=== PATIENT | male | born 1985 | race Caucasian/White ===

== ENCOUNTER 2016-10-01 13:35 | Emergency (ER) | payer OTHER ==
[2016-10-01 14:04] VITALS: BP 123/71
--- NOTE | 2016-10-01 14:42 | UC ---
Back Pain HPI - HPI Summary HPI Summary: complaint of lower back pain that started yesterday had some slight pain that started 2 days ago but was mild then after carrying a large box of water upstairs today the pain increased constant aching non radiating pain movement increases pain lying on his side relieves pain used ice on and off this morning using diclofenac cream without relief took some ibuprofen without relief - last dose at 7:30 this morning denies fever, incontinence, no unintentional weight loss in the last year - History of Current Complaint Chief Complaint: UCBackPain Stated Complaint: BACK SPASMS Time Seen by Provider: 10/01/16 14:35 Hx Obtained From: Patient - Allergies/Home Medications Allergies/Adverse Reactions: Allergies Allergy/AdvReac Type Severity Reaction Status Date / Time Dust Mite Extract Allergy Intermediate SINUS Verified 10/01/16 13:58 CONGESTION, ITCHING Doxycycline Allergy Itching Verified 10/01/16 13:58 Penicillins Allergy Unknown Verified 10/01/16 13:58 Reaction Details TREE POLLEN Allergy Unknown Unknown Uncoded 10/01/16 13:58 Reaction Details seasonal allergy Allergy Congestion Uncoded 10/01/16 13:58 Home Medications: Home Medications Minocycline (NF) 100 mg PO DAILY 10/01/16 [History Confirmed 10/01/16] Omeprazole CAP* [Prilosec CAP* 20 MG] 40 mg PO DAILY 10/01/16 [History Confirmed 10/01/16] buPROPion SR TAB* [Wellbutrin SR TAB*] 300 mg PO DAILY 10/01/16 [History Confirmed 10/01/16] PMH/Surg Hx/FS Hx/Imm Hx Previously Healthy: No - chronic back pain, undiffernetiated connective tissue disease, fibromyalgia - Surgical History Surgical History: Yes Surgery Procedure, Year, and Place: wisdom teeth. SINUS - TISSUE REMOVED & DEVIATED EPTUM - 02/04, upper endoscopy 2014. tear duct plugs placed bilat - Family History Known Family History: Positive: None, Hypertension Negative: Cardiac Disease, Diabetes - Social History Occupation: Employed Full-time Lives: With Family Alcohol Use: None Substance Use Type: None Smoking Status (MU): Never Smoked Tobacco Have You Smoked in the Last Year: No - Immunization History Hx Tetanus, Diphtheria Vaccination: Yes Vaccination Up to Date: Yes Review of Systems Constitutional: Negative Skin: Negative Eyes: Negative ENT: Negative Respiratory: Negative Cardiovascular: Negative Gastrointestinal: Negative Genitourinary: Negative Motor: Negative Neurovascular: Negative Musculoskeletal: Other: - lower back pain Neurological: Negative Psychological: Negative All Other Systems Reviewed And Are Negative: Yes Physical Exam Triage Information Reviewed: Yes Appearance: Well-Nourished, Pain Distress, Thin Vital Signs: Initial Vital Signs Temp 97.9 F 10/01/16 14:00 Pulse 75 10/01/16 14:00 Resp 16 10/01/16 14:00 BP 123/71 10/01/16 14:00 Pulse Ox 97 10/01/16 14:00 Vital Signs Reviewed: Yes Eyes: Positive: Conjunctiva Clear ENT: Positive: Pharynx normal, TMs normal Neck: Positive: No Lymphadenopathy Respiratory: Positive: Lungs clear, Normal breath sounds, No respiratory distress, No accessory muscle use Cardiovascular: Positive: RRR, No Murmur, Pulses Normal, Brisk Capillary Refill Abdomen Description: Positive: Nontender, Soft Bowel Sounds: Positive: Present Musculoskeletal: Positive: Other: - Spine have no noted deformities or signs of inflammation. Curvature of thoracic, and lumbar spine are within normal limits. Bony features of shoulders and hips are of equal height bilaterally. Spinous processes of T1-L5 palpable, midline, and non-tender; No step-offs. lumbar paraspinal tenderness. Flexion, extension, and rotation of the remaining spinal column is limited. Neurological: Positive: Alert, Other: Psychological Exam: Normal Skin Exam: Normal Re-Evaluation - Re-Evaluation First Eval Re-Evaluation Time: 15:21 Change: Improved Comment: less back pain at this time Back Pain Course/Dx - Course Course Of Treatment: exam completed. no red flags to warrant imaging at this time. will start muscle relaxer and NSAIDS and refer to PT for further evaluation and treatment - followup with PCP - Differential Dx/Diagnosis Differential Diagnosis/HQI/PQRI: Herniated Disc, Strain, Sprain Provider Diagnoses: lower back pain Discharge - Discharge Plan Condition: Stable Disposition: HOME Prescriptions: Ibuprofen TAB* [Motrin TAB* 800 MG] 800 mg PO Q8H #30 tab Metaxalone TAB* [Skelaxin TAB*] 800 mg PO TID #30 tab Patient Education Materials: Low Back Strain (ED) Referrals: Jordon Castro MD [Primary Care Provider] - Additional Instructions: Start skelaxin as directed. Do not drink or drive while on skelaxin. Please call physical therapy for further evaluation and treatment. Take ibuprofen for fever or pain. Increase fluids and rest. Please review your discharge instructions. If your symptoms do not improve please call your primary care provider or return to urgent care.
[2016-10-01] MEDS ORDERED: Ketorolac INJ* 60 MG/2 ML VIAL IM ONE (14:49)
== END 2016-10-01 15:34 | disposition home or self-care (01) ==
LOC: UCCORT 13:35
DX: M54.5 Low back pain (principal); Z88.1 Allergy status to other antibiotic agents; Z88.0 Allergy status to penicillin
CPT/HCPCS: 96372; 99212; G0463; J1885

== ENCOUNTER 2017-11-07 19:00 | Emergency (ER) | payer OTHER ==
[2017-11-07 20:17] VITALS: BP 110/71
--- NOTE | 2017-11-07 20:32 | UC ---
Respiratory Complaint HPI - HPI Summary HPI Summary: 5 days of worsening cough and chest congestion--patient is immune-suppressed. has not used his inhaler - History of Current Complaint Chief Complaint: UCRespiratory Stated Complaint: COUGH Time Seen by Provider: 11/07/17 20:22 Hx Obtained From: Patient Onset/Duration: Gradual Onset, Lasting Days - 5, Still Present Timing: Constant Pain Intensity: 7 Pain Scale Used: 0-10 Numeric Character: Cough: Productive Aggravating Factors: Nothing Alleviating Factors: Nothing Associated Signs And Symptoms: Positive: Chills, URI - Allergies/Home Medications Allergies/Adverse Reactions: Allergies Allergy/AdvReac Type Severity Reaction Status Date / Time doxycycline Allergy Itching Verified 11/07/17 20:11 Penicillins Allergy Unknown Verified 11/07/17 20:11 Reaction Details TREE POLLEN Allergy Unknown Unknown Uncoded 10/01/16 13:58 Reaction Details DUST MITE EXTRACT Allergy See Comment Uncoded 11/07/17 20:11 seasonal allergy Allergy Congestion Uncoded 10/01/16 13:58 Home Medications: Home Medications Abatacept* [Orencia*] 1 dose .ROUTE SEE INSTRUCTIONS 11/07/17 [History Confirmed 11/07/17] Cyclobenzaprine TAB* [Flexeril 10 MG TAB*] 10 mg PO BID PRN 11/07/17 [History Confirmed 11/07/17] Metoprolol Succinate XL TAB* [Toprol XL TAB*] 25 mg PO DAILY 11/07/17 [History Confirmed 11/07/17] Mirtazapine TAB* [Remeron TAB*] 15 mg PO BEDTIME 11/07/17 [History Confirmed ] Topiramate TAB(*) [Topamax 25 MG tab] 50 mg PO BEDTIME 11/07/17 [History Confirmed 11/07/17] PMH/Surg Hx/FS Hx/Imm Hx Previously Healthy: No - connective tissue disorder Cardiovascular History: Hypertension GI/ History: Gastroesophageal Reflux - Surgical History Surgical History: Yes Surgery Procedure, Year, and Place: wisdom teeth. SINUS - TISSUE REMOVED & DEVIATED EPTUM - 02/04, upper endoscopy 2014. tear duct plugs placed bilat - Family History Known Family History: Positive: None, Hypertension Negative: Cardiac Disease, Diabetes - Social History Occupation: Disabled Lives: With Family Alcohol Use: None Substance Use Type: None Smoking Status (MU): Never Smoked Tobacco Have You Smoked in the Last Year: No - Immunization History Hx Tetanus, Diphtheria Vaccination: Yes Vaccination Up to Date: Yes Review of Systems Constitutional: Fatigue Skin: Negative Eyes: Negative ENT: Sore Throat Respiratory: Cough Cardiovascular: Negative Gastrointestinal: Negative Genitourinary: Negative Motor: Negative Neurovascular: Negative Musculoskeletal: Negative Neurological: Negative Psychological: Negative Is Patient Immunocompromised?: Yes All Other Systems Reviewed And Are Negative: Yes Physical Exam Triage Information Reviewed: Yes Appearance: Well-Nourished, Ill-Appearing - mild, Pain Distress Vital Signs: Initial Vital Signs Temp 98.5 F 11/07/17 20:03 Pulse 97 11/07/17 20:03 Resp 16 11/07/17 20:03 BP 110/71 11/07/17 20:03 Pulse Ox 100 11/07/17 20:03 Vital Signs Reviewed: Yes Eye Exam: Normal Eyes: Positive: Conjunctiva Clear ENT Exam: Normal ENT: Positive: Normal ENT inspection, Hearing grossly normal, Pharynx normal, Nasal congestion, Nasal drainage, TMs normal, Uvula midline. Negative: Tonsillar swelling, Trismus, Muffled voice, Hoarse voice, Dental tenderness, Sinus tenderness Dental Exam: Normal Neck exam: Normal Neck: Positive: Supple, Nontender, No Lymphadenopathy Respiratory Exam: Normal Respiratory: Positive: Chest non-tender, Lungs clear, Normal breath sounds, No respiratory distress, No accessory muscle use Cardiovascular Exam: Normal Cardiovascular: Positive: RRR, No Murmur, Pulses Normal, Brisk Capillary Refill Musculoskeletal Exam: Normal Musculoskeletal: Positive: Strength Intact, ROM Intact, No Edema Neurological Exam: Normal Neurological: Positive: Alert, Muscle Tone Normal Psychological Exam: Normal Skin Exam: Normal UC Diagnostic Evaluation - Laboratory O2 Sat by Pulse Oximetry: 100 Re-Evaluation - Re-Evaluation First Eval Change: Improved - feels better after neb---cough significantly improved Respiratory Course/Dx - Course Course Of Treatment: zithromax, refill albuterol increase fluids follow with pcp - Differential Dx/Diagnosis Provider Diagnoses: bronchitis, acute exacerbation of bronchospasm Discharge - Sign-Out/Discharge Documenting (check all that apply): Patient Departure All imaging exams completed and their final reports reviewed: No Studies - Discharge Plan Condition: Stable Disposition: HOME Prescriptions: Albuterol HFA INHALER* [Ventolin HFA Inhaler*] 2 puff INH Q6H PRN #1 mdi PRN Reason: cough/sob Azithromycin TAB* [Zithromax TAB (Z-KETAN) 250 mg #6 tabs] 250 mg PO DAILY #4 tab Patient Education Materials: Acute Bronchitis (ED), Bronchospasm (ED) Referrals: Jordon Castro MD [Primary Care Provider] - If Needed - Billing Disposition and Condition Condition: STABLE Disposition: Home
[2017-11-07] MEDS ORDERED: Albuterol/Ipratropium NEB.SOL* Albuterol 2.5 MG/Ipratropium 0.5 MG 3 ML INH ONE (20:33)
[2017-11-07] MEDS ORDERED: Azithromycin TAB* 250 MG PO ONE (20:34)
== END 2017-11-07 20:58 | disposition home or self-care (01) ==
LOC: UCCORT 19:00
CPT/HCPCS: 99212; A9270-GY; G0463

== ENCOUNTER 2018-05-14 21:20 | Emergency (ER) | payer OTHER ==
[2018-05-14 21:36] VITALS: BP 132/87
[2018-05-14] MEDS ORDERED: ceFUROXime TAB(*) 250 MG PO ONE (21:42)
--- NOTE | 2018-05-14 21:43 | UC ---
Respiratory Complaint HPI - HPI Summary HPI Summary: 32 yo male with sinus pressure and pain/severe nasal d/c and right upper dental pain no fever/chills no cough or SOB no myalgias has had sinus surgery - History of Current Complaint Chief Complaint: UCRespiratory Stated Complaint: SINUSES Time Seen by Provider: 05/14/18 21:26 Hx Obtained From: Patient Onset/Duration: Sudden Onset, Lasting Days Timing: Constant Severity Initially: Mild Severity Currently: Moderate Pain Intensity: 6 Pain Scale Used: 0-10 Numeric Character: Cough: Nonproductive Aggravating Factors: Nothing Alleviating Factors: Nothing Associated Signs And Symptoms: Positive: URI, Nasal Congestion, Sinus Discomfort - Allergies/Home Medications Allergies/Adverse Reactions: Allergies Allergy/AdvReac Type Severity Reaction Status Date / Time doxycycline Allergy Itching Verified 05/14/18 21:28 Penicillins Allergy Unknown Verified 05/14/18 21:28 Reaction Details TREE POLLEN Allergy Unknown Unknown Uncoded 05/14/18 21:28 Reaction Details DUST MITE EXTRACT Allergy See Comment Uncoded 05/14/18 21:28 seasonal allergy Allergy Congestion Uncoded 05/14/18 21:28 Home Medications: Home Medications Clindamycin 1% TOPICAL(NF) [Cleocin-T 1% TOPICAL(NF)] 1 % EX DAILY 05/14/18 [ History Confirmed 05/14/18] Diclofenac 1% GEL (NF) [Voltaren 1% GEL (NF)] 1 applic TOPICAL QID PRN 05/14/18 [History Confirmed 05/14/18] Fluticasone NASAL SPRAY 50MCG* [Flonase NASAL SPRAY 50MCG*] 2 spray BOTH NARES DAILY 05/14/18 [History Confirmed 05/14/18] levETIRAcetam [Keppra] 500 mg PO TID 05/14/18 [History Confirmed 05/14/18] PMH/Surg Hx/FS Hx/Imm Hx Previously Healthy: Yes - RA/fibro/mono/ Cardiovascular History: Hypertension - Surgical History Surgical History: Yes Surgery Procedure, Year, and Place: wisdom teeth. SINUS - TISSUE REMOVED & DEVIATED EPTUM - 02/04, upper endoscopy 2014. tear duct plugs placed bilat - Family History Known Family History: Positive: Hypertension Negative: Cardiac Disease, Diabetes - Social History Alcohol Use: None Substance Use Type: None Smoking Status (MU): Never Smoked Tobacco Have You Smoked in the Last Year: No - Immunization History Hx Tetanus, Diphtheria Vaccination: Yes Vaccination Up to Date: Yes Review of Systems All Other Systems Reviewed And Are Negative: Yes Constitutional: Positive: Negative Skin: Positive: Negative Eyes: Positive: Negative ENT: Positive: Nasal Discharge, Sinus Congestion, Sinus Pain/Tenderness Respiratory: Positive: Cough Cardiovascular: Positive: Negative Gastrointestinal: Positive: Negative Genitourinary: Positive: Negative Motor: Positive: Negative Neurovascular: Positive: Negative Musculoskeletal: Positive: Negative Neurological: Positive: Negative Psychological: Positive: Negative Physical Exam Triage Information Reviewed: Yes Appearance: Well-Appearing, No Pain Distress, Well-Nourished Vital Signs: Initial Vital Signs Temp 98.8 F 05/14/18 21:33 Pulse 98 05/14/18 21:33 Resp 16 05/14/18 21:33 BP 132/87 05/14/18 21:33 Pulse Ox 100 05/14/18 21:33 Vital Signs Reviewed: Yes Eyes: Positive: Conjunctiva Clear ENT: Positive: Hearing grossly normal, Nasal congestion, Nasal drainage, TMs normal, Sinus tenderness - R>L. Negative: Tonsillar swelling, Tonsillar exudate Neck: Positive: Supple, Nontender, No Lymphadenopathy Respiratory: Positive: Lungs clear, Normal breath sounds, No respiratory distress Cardiovascular: Positive: RRR, No Murmur Neurological: Positive: Alert Psychological Exam: Normal Skin Exam: Normal Respiratory Course/Dx - Differential Dx/Diagnosis Provider Diagnosis: Sinusitis Discharge - Sign-Out/Discharge Documenting (check all that apply): Patient Departure All imaging exams completed and their final reports reviewed: No Studies - Discharge Plan Condition: Stable Disposition: HOME Prescriptions: ceFUROXime TAB(*) [Ceftin TAB(*)] 250 mg PO BID #14 tab Patient Education Materials: Sinusitis (ED) Referrals: Jordon Castro MD [Primary Care Provider] - If Needed - Billing Disposition and Condition Condition: STABLE Disposition: Home
== END 2018-05-14 21:54 | disposition home or self-care (01) ==
LOC: UCCORT 21:20
DX: J32.9 Chronic sinusitis, unspecified (principal); I10 Essential (primary) hypertension; Z98.890 Other specified postprocedural states; Z88.1 Allergy status to other antibiotic agents; Z88.0 Allergy status to penicillin; Z91.09 Other allergy status, other than to drugs and biological substances
CPT/HCPCS: 99212; G0463

== ENCOUNTER 2019-02-18 21:03 | Emergency (ER) | payer OTHER ==
--- OUTSIDE RECORDS SUMMARY | 2019-02-18 21:12 | XMS REPORT | Summary of Care ---
:1985 Author Organization [facility] Address [address] [place] [address] Care Team Providers Name Role Phone Jordon Castro MD Primary Care Provider Reason for Visit Reason Comments Follow-up Medication (Routine) Status Reason Specialty Diagnoses / Referred By Contact Referred To Procedures Contact Authorized Rheumatology Diagnoses Rheumatoid arthritis without rheumatoid factor, unspecified site Rheumatology Procedures [place] ABATACEPT INJECTION Medicine Private Practice [facility] [address] [place] [phone] Encounter Details Date Type Department Care Team Description 02/03/2019 Office Visit [facility] Pebbles Guallpa MD [address] [place] [id number] High risk medication use (Primary Dx); Rheumatology Madhavi Harley, RN [address] [place] [phone] Seronegative rheumatoid arthritis [address] [place] [phone] Allergies Active Allergy Reactions Severity Noted Date Comments Doxycycline Hyclate Itching Low 07/18/2014 Penicillins Medium 07/18/2014 documented as of this encounter (statuses as of 02/03/2019) Medications Medication Sig Dispensed Refills Start Date End Date Status albuterol (VENTOLIN Inhale 2 puffs 0 Active HFA) 108 (90 BASE) into the lungs MCG/ACT inhaler every 4 (four) hours as needed for Wheezing. omeprazole (PRILOSEC) Take 40 mg by 0 Active 40 MG capsule mouth daily. diazepam (VALIUM) 5 MG Take 5 mg by 0 Active tablet mouth every 6 (six) hours as needed for Anxiety. diphenhydrAMINE Take 50 mg by 0 Active (BENADRYL) 25 MG tablet mouth nightly as needed for Itching. cetirizine (ZYRTEC) 10 Take 10 mg by 0 Active MG tablet mouth daily. ibuprofen Take 800 mg by 0 Active (ADVIL,MOTRIN) 800 MG mouth every 8 tablet (eight) hours as needed for Pain Azelastine-Fluticasone by Nasal route 0 Active (DYMISTA) 137-50 MCG/ACT SUSP cyclobenzaprine 5 mg Three times 0 03/05/2017 Active (FLEXERIL) 5 MG tablet daily as needed metoprolol (TOPROL-XL) Take 25 mg by 0 Active 25 MG 24 hr tablet mouth daily topiramate (TOPAMAX) 25 Take 4 tablet by 0 08/27/2017 Active MG tablet mouth at bedtime AT BEDTIME mirtazapine (REMERON) 0 09/07/2017 Active 15 MG tablet levETIRAcetam (KEPPRA) Take 1,000 mg by 0 Active 250 MG tablet mouth Two Times Daily fluticasone (FLONASE) 1 spray by Nasal 0 Active 50 MCG/ACT nasal spray route daily AZELASTINE & by Nasal route 0 Active FLUTICASONE NA Diclofenac Sodium Apply 2 g 200 g 3 04/05/2018 Active (VOLTAREN) 1 % topically Four GELIndications: M06.9 times daily Rheumatoid Arthritis Pain acetaminophen (TYLENOL) Take 1,000 mg by 0 Active 500 MG tablet mouth every 6 (six) hours as needed for Pain CLARAVIS 40 MG capsule Take 40 mg by 0 09/07/2018 Active mouth daily fluocinonide (LIDEX) apply to SCALP 0 10/12/2018 Active 0.05 % external once daily for 1 solution week then if needed WHEN ITCHY documented as of this encounter (statuses as of 02/03/2019) Active Problems Problem Noted Date High risk medication use 07/01/2018 Seronegative rheumatoid arthritis 05/21/2016 Major depressive disorder, recurrent severe without psychotic features 2015 ADHD (attention deficit hyperactivity disorder), inattentive type 10/03/2015 Fibromyalgia 10/03/2015 Connective tissue disease, undifferentiated 10/25/2014 Polyarthralgia Positive NATASHA (antinuclear antibody) documented as of this encounter (statuses as of 02/03/2019) Social History Tobacco Use Types Packs/Day Years Used Date Never Smoker Smokeless Tobacco: Never Used Alcohol Use Drinks/Week oz/Week Comments No 0 Standard drinks or equivalent 0.0 Sex Assigned at Date Recorded Not on file Job Start Date Occupation Industry Not on file Not on file Not on file Travel History Travel Start Travel End No recent travel history available. documented as of this encounter Last Filed Vital Signs Vital Sign Reading Time Taken Comments Blood Pressure 124/84 02/03/2019 1:21 PM EST Pulse 86 02/03/2019 1:21 PM EST Temperature 36.6 02/03/2019 1:21 PM C (97.9 EST F) Respiratory Rate 16 02/03/2019 1:21 PM EST Oxygen Saturation 98% 02/03/2019 1:21 PM EST Inhaled Oxygen Concentration - - Weight 77.1 kg (169 lb 14.4 oz) 02/03/2019 1:21 PM EST Height - - Body Mass Index 27.42 12/23/2018 1:10 PM EDT documented in this encounter Progress Notes Pebbles Guallpa MD - 02/03/2019 1:15 PM EST Subjective: Patient ID: Fredo Alva is a 33 y.o. male. HPI This is a 33-year-old white male with history of allergies, gallbladder stones, positive NATASHA, polyarthralgia, rheumatoid arthritis overlap with connective tissue disease came in for follow up. I first time saw him on 09/27/2014 at which time he was referred by primary doctor for positive antinuclear antibody test and arthralgia. A couple years ago, the patient had mononucleosis infection, presented with fever and fatigue. After that, he always has some fatigue on and off. For the past 1 year though, he has gradually developed joint pains all over the body except the hips and spine. He describes the pain as achy, sometimes with sharp pain. The worst pain could be 8/10. He does have good days and bad days. The joints are not specifically swollen or stiff in the morning. He tried ibuprofen, which gave some relief, and oxycodone he uses sparsely. He did try 2 courses of prednisone for about 1week. That gave some relief, but he does have a stomach issues and he currently is not on prednisone. He had history of right upper quadrant abdominal pain, and in April, he had blood work that showed elevated lipase. He did have history of gallstone. They suspected that maybe he passed the stone. He did follow up with a visual and stock associate and had EGD last month, which turned out to be normal. He has chronic constipation. He lost some weight with low appetite. According to Dr. Castro's office notes, the patient has elevated antinuclear antibody test, but I do not have that report. The CBC and CMP in April were unremarkable. The patient denies photosensitivity, skin rash, oral ulcers, alopecia, chest pain, abdominal pain, diarrhea, dysuria, hematuria. Hedoes have a headache, sometimes dry mouth with medications and dry eyes. No Raynaud' s. He was tested. HIV and hepatitis C were both negative by visual and stock associate. He had immunization of hepatitis B and hepatitis A. On 10/25/2014, he came in for follow up. I reviewed labs with the patient. NATASHA nucleolar pattern 6250 but NATASHA specificity, RF, CCP, ANCA were all normal. I suspect undifferentiated connective tissue disease. recommenced Plaquenil 400mg daily. Side effects explained. Need yearly eye exams. E-prescribed. On 05/31/2015, he came in for follow up. He tried Plaquenil 400mg daily for about 3-4 months but did not notice any benefit. He called in. I suggested Methotrexate 10mg weekly. He tried about 2-3 months but he did not notice benefit either. He was on tramadol in the past but switched to hydrocodone 10mgbid for pain by his PCP. I suggested to taper off Opoid pain medications as tolerated to better assess his symptoms. He also reported some low grade fever, weight loss and low appetites. SPEP showed Mild polyclonal elevation of gamma globulins suggestive of an inflammatory process. . Addendum note 08/29/2015, he called that he was off opoid pain medication for a couple of medication. Still had a lot pain of legs and hands. I suggested increase Methotrexate 15mg weekly. Ibuprofen 800mg as needed. On 10/03/2015, he came in for follow up. After methotrexate increase to 15 mg weekly, he still did not notice significant improvement of pain. The patient has a lot of stress going on with his mother, who is sick, and financial difficulties. He has depression, anxiety, and insomnia. On the exam, he does have diffuse body tenderness, I suspect he might have fibromyalgia on top of inflammatory arthritis. Will increase methotrexate to 20 mg weekly. Also referred to Psychiatry, Dr. Dg De La Cruz, for depression, anxiety, and fibromyalgia management. He still see labeling machine operator for dry eyes and plan to have plugs placed. On 10/24/2015, he came in for urgent visit. Even with increased methotrexate to 20 mg weekly, he continued to have diffuse joint pain without any improvement. Discussed about other disease modifying antirheumatic drugs including Arava, CellCept, and belimumab infusions. He agreed to try Arava 20 mg daily. Side effects explained in detail. If he fails, will consider belimumab infusion. He is looking into a psychotherapist in the [place] area. He is already on antidepressant medication for his depression. On 12/12/2015, he came in for follow up. He tried Arava 20mg daily but still have joints pain at fingers PIP joints, feet. Tylenol and NSAIDs were not effective either. Discussed about biologics. He agreed to try Enbrel 50mg sc weekly. Side effects explained in detail. On 01/23/2016, he came in for follow up. He tried 6 doses of Enbrel 50mg sc weekly. Joints pain from 8/10, down to 5/10 but still had joints pain and swelling at hands PIP joints, wrists, elbows, shoulders, knees and feet. He developed diarrhea and reflex disease. Headache was better though. Discussed about other DMARDs. Discontinue Enbrel. Will try Sulfasalazine 1000mg bid. If failed, consider other biologics. On 03/26/2016, he came in for follow up. The patient tried sulfasalazine 1000 mg twice a day for almost 3 months, but he did not notice any benefit. He continued to have diffuse joint pain, 8/10, and swelling of the hands, wrists, elbows, shoulders, knees. He has a low-grade fever, temperature 99.5 today. So far, he has failed methotrexate, hydroxychloroquine, sulfasalazine, Spiriva, and Enbrel. His primary doctor, Dr. Castro, believes that his symptoms are post mononucleosis infection. Will trydiclofenac 75 mg twice a day for the joint pain. If that is not enough, we will consider Orencia infusion. The patient agreed with the plan. On 05/21/2016, he came in for follow up and filled out disability form. The patient continued to havediffuse joint pains and body pain and tenderness. The disability form that I received from his computer graphic artist is suggesting that he might have fibromyalgia. I filled out the form and the patient did have fibromyalgia tender points but also has peripheral joint tenderness. So far, he has failed for multipledisease-modifying anti-rheumatic drugs and Enbrel. Discussed about other biologics. He agreed to try Orencia infusion. Diclofenac 75mg bid was not effective at all. On 06/25/2016, he came in for follow up. His insurance denied Orencia infusion initially. The patienthas to try 2 different kinds of biologics. He already tried Enbrel, which did not work. He agreed to try Humira 40 mg subcu every 2 weeks for the past 2 months or so. He still has a lot of pain and joint swelling of bilateral hands, PIP, shoulders, knees and feet. The joints are tender, and he hasstiffness. The diclofenac does not work at all. We discussed about Orencia infusion again, and he agreed to give a try. On 2016, he came in for follow up and first dose of Orencia infusion. He still has a lot of pain and joint swelling of bilateral hands, PIP, shoulders, knees and feet. The joints are tender, and he has stiffness. Tried Humira for 2 -3 months but no improvement of arthritis. Tolerated Orencia 750mg infusion. On 07/23/2016, he came in for follow up and second dose of Orencia infusion. The patient felt good fora couple of days after first dose Orencia infusion, but the pain seems to come back again most at the lateral hands PIP joints, shoulders, knees and ankles. Will do second dose of Orencia 750 infusiontoday. His primary care doctor will start gabapentin for fibromyalgia pain, which I think is worst to try. On 08/06/2016, the patient came in for follow up. He tolerated 2 doses of Orencia 750 mg infusion already, but has not noticed significant improvement yet. Still has diffuse joint pain and body ache and tenderness. He was evaluated by psychiatry, Dr. Dg De La Cruz. Did ice bucket test to confirm thediagnosis of fibromyalgia. Dr. De La Cruz recommended low-dose naltrexone for chronic pain. The patient just started it last week. Has not noticed benefit yet. So far, he tolerated well. We will do the third dose of Orencia 750 mg infusion today. On 09/04/2016, the patient came in for follow up. After Orencia infusion, patient feels slightly better for about 2 weeks, and joint pain seems to be coming back before next infusion. So far, no side effects or infections from Orencia infusion. He tolerated well. On exam, though, the joints do feel better too. He continues followup with Dr. Dg De La Cruz for low-dose naltrexone treatment for fibromyalgia. His fibromyalgia is still acting up. On 10/09/2016, the patient came in for follow up. The patient comes in today for Orencia infusion. It seems it did help with peripheral joint pain at fingers and ankles. He continued to have diffuse body pain and fibromyalgia pain. The patient said he tried low-dose naltrexone with Dr. Dg De La Cruz, but repeat echo pressure test did not improve significantly. Last week, the patient had some sort of lower back muscle spasm and sprained muscles. He is on Skelaxin muscle relaxant for that. We diddiscuss about medical marijuana program. He said he will be looking into that if failed on low-dosenaltrexone. Did Orencia infusion 750 mg today. Tolerated well. On 11/05/2016, the patient came in for follow up. The patient came in for followup and Orencia infusion. Overall slight improvement with Orencia. Still has bilateral ankle swelling. Still has fatigue and joint pain but seems better. So far, no infections or side effects from Orencia. Tolerated Orencia 750 mg infusion today. On 12/04/2016, the patient came in for follow up. The patient came in for followup and Orencia infusion. Overall slight improvement with Orencia. Still has bilateral ankle swelling. Still has fatigueand joint pain but seems better. So far, no infections or side effects from Orencia. Tolerated Orencia 750 mg infusion On 01/22/2017, the patient came in for follow up. In early December, the patient developed a fever, congestion, and infection. The patient has to cancel December 2016 Orencia infusion. He certainly noticed more joint pain in wrists , shoulders, knees, ankles. Infection resolved. He was off low-dose naproxen because that did not help with the pain. I made a referral to Pain Clinic and [facility]. Tolerated Orencia 750 mg infusion. On 02/19/2017, the patient came in for follow up. With the Orencia infusion, joint pains are much improved. Still had pain in both ankles and diffuse fibromyalgia pain, but the inflammation is some much better compared to 4 weeks ago. Otherwise, no infections or side effects. He has an appointment with the Pain Clinic next week. On 03/19/2017, the patient came in for follow up. Seronegative rheumatoid arthritis, been stable on Orencia 750 mg infusion. The joints are not so painful and swollen, but he still has fibromyalgia pain. Follow up with [facility], on Flexeril and Mobic. Otherwise, no side effects, infections. On 04/16/2017, the patient came in for follow up. About a week ago, the patient was bitten by a cat, some bite scars on the right hand fifth digit that is black color, and all the fingers are red. I suggest to hold off the Orencia infusion today, and he agreed. He still has a lot of back pain on Flexeril and Mobic, but other peripheral joints are not really painful. We will reschedule Orencia infusion next week. On 04/22/2017, the patient came in for follow up. Right hand cat bites healed well. He certainly noticed more joints pain and swelling at ankles. Tolerated Orencia 750mg iv. On 06/18/2017, the patient came in for follow up. He had another Orencia infusion on 05/19/[address] Gamble. Still have joints mild swelling at hands PIP joints and ankles. Tolerated Orencia 750mg iv infusion. On 07/15/2017, the patient came in for follow up. More fatigue since last visit. Still have diffused fibromyalgia tender points. On Lyrica. Arthritis were stable. Tolerated Orencia 750mg iv infusion. On 08/13/2017, the patient came in for follow up. Orencia infusion does help with the arthritis but lasts only about 3 weeks or so. Last week, the patient feels hands, fingers, wrists, elbows sore, butotherwise, he was stable. Tolerated Orencia 750mg iv infusion. On 09/10/2017, the patient came in for follow up. Overall arthritis has been stable on Orencia 750mg iv infusion monthly. Still have fibromyalgia. Considering new medications. On 10/07/2017, the patient came in for follow up. Overall arthritis has been stable on Orencia 750mg iv infusion monthly. Still have fibromyalgia. He try to exercise more and noticed knees shooting pain. But not swelling. On 11/05/2017, the patient came in for follow up. A couple weeks ago, he injured his right middle back by lifting heave bags. Otherwise arthritis has been stable on Orencia 750mg iv infusion monthly. On 12/02/2017, the patient came in for follow up. Repeated NATASHA speckle 50,. Nucleolar 50, SSA 235, NETBACKUP ADMIN 215. Overall felt stable on Orencia 750mg infusion. On 01/14/2018, the patient came in for follow up. Since last visit, patient seems to have more symptoms of fibromyalgia, but also has joint pains at wrists , elbows, shoulders, knees and ankles and toes. The patient followed up with psychiatrist, recently switched from topiramate to Keppra. He is also on Wellbutrin for depression. Otherwise, no infections or side effects. Tolerated Orencia 750 mg infusion today. On 02/11/2018, the patient came in for follow up. A couple of days ago, patient hurt his left side of back without doing specific activity. He thought he have might sat in the chair for too long. He has had a similar problem in the past. He is doing the exercise at home because he cannot go to physical therapy. Other joints are better. He tolerated Orencia 750 mg infusion today. On 03/11/2018, the patient came in for follow up. Other than he hurt his back this morning, he was doing fine. He tolerated Orencia 750 mg infusion today. On 04/08/2018, the patient came in for follow up. Overall doing well on Orencia 750mg infusion. He had "inflammed sciatic nerve". Still have fibromyalgia pain. On 05/06/2018, the patient came in for follow up. He saw [facility] for back pain. Going to have SI joint steroid injection. Overall, he was doing well on Orencia 750 mg infusion.Still have fibromyalgia tender points. On 06/03/2018, the patient came in for follow up. Arthritis were controlled with Orencia 750mg iv butstill have diffused fibromyalgia tender points, fatigue. On 07/01/2018, the patient came in for follow up. More joints pain at hands PIP joints, ankles. One week ago, he noticed left hand dorsal side 1cm skin abrasion. No bleeding. He did not remember any injury. He had bad left sciatic pain. Had one nerve block at [facility] which only lasted 3 days. He was going to have another one next Wednesday. On 07/28/2018, the patient came in for follow up. Still have pain at both wrists, knees, ankles. He had diagnostic injection at [facility] which helped. Still have diffused fibromyalgia tender points and fatigue. Tolerated Orencia 750mg iv. On 08/26/2018, the patient came in for follow up. He had another injection at [facility] about a month ago, this time making the back pain really worse. Actually has severe left-sided sciatica. Now, he walks limping today. The plan is to have an EMG/nerve conduction study again. He was given 1 course of a Medrol Dosepak, but it did not help with any pain. Tolerated Orencia 750 mg IV. On 09/23/2018, the patient came in for follow up. He had herniated disc and radiculopathy. Taking ibuprofen as needed. Referred to PT by [facility]. Considering nerve block injection.Hands, knees, ankles increased pain. Tolerated Orencia 750 mg IV. On 10/28/2018, the patient came in for follow up. Back pain was much better after injections at [facility]. Tolerated Orencia 750 mg IV. On 11/25/2018, the patient came in for follow up. He did a lot of PT for back pain. Hands feet more sore than before this week. Tolerated Orencia 750 mg IV. On 12/23/2018, the patient came in for follow up. PT and epidural injections helped back pain. Still has fibromyalgia pain. Tolerated Orencia 750 mg IV. On 02/03/2019, the patient came in for follow up. Flare up of arthritis at hands , elbows, ankles andtoes. Tolerated Orencia 750 mg IV. Review of Systems Per HPI. Review of complete ROS is negative. Past Medical History: Diagnosis Date Allergy Polyarthralgia Positive NATASHA (antinuclear antibody) Past Surgical History: Procedure Laterality Date SINUS SURGERY Family History Problem Relation Age of Onset Hypertension Father Hypertension Paternal Grandmother Social History Tobacco Use Smoking status: Never Smoker Smokeless tobacco: Never Used Substance Use Topics Alcohol use: No Alcohol/week: 0.0 standard drinks Drug use: No Penicillins and Doxycycline hyclate Current Outpatient Medications Medication Sig Dispense Refill acetaminophen (TYLENOL) 500 MG tablet Take 1,000 mg by mouth every 6 (six ) hours as needed for Pain albuterol (VENTOLIN HFA) 108 (90 BASE) MCG/ACT inhaler Inhale 2 puffs into the lungs every 4 (four) hours as needed for Wheezing. AZELASTINE & FLUTICASONE NA by Nasal route Azelastine-Fluticasone (DYMISTA) 137-50 MCG/ACT SUSP by Nasal route cetirizine (ZYRTEC) 10 MG tablet Take 10 mg by mouth daily. CLARAVIS 40 MG capsule Take 40 mg by mouth daily 0 cyclobenzaprine (FLEXERIL) 5 MG tablet 5 mg Three times daily as needed diazepam (VALIUM) 5 MG tablet Take 5 mg by mouth every 6 (six) hours as needed for Anxiety. Diclofenac Sodium (VOLTAREN) 1 % GEL Apply 2 g topically Four times daily 200 g 3 diphenhydrAMINE (BENADRYL) 25 MG tablet Take 50 mg by mouth nightly as needed for Itching. fluocinonide (LIDEX) 0.05 % external solution apply to SCALP once daily for 1 week then if needed WHEN ITCHY 0 fluticasone (FLONASE) 50 MCG/ACT nasal spray 1 spray by Nasal route daily ibuprofen (ADVIL,MOTRIN) 800 MG tablet Take 800 mg by mouth every 8 ( eight) hours as needed for Pain levETIRAcetam (KEPPRA) 250 MG tablet Take 1,000 mg by mouth Two Times Daily metoprolol (TOPROL-XL) 25 MG 24 hr tablet Take 25 mg by mouth daily mirtazapine (REMERON) 15 MG tablet 0 omeprazole (PRILOSEC) 40 MG capsule Take 40 mg by mouth daily. topiramate (TOPAMAX) 25 MG tablet Take 4 tablet by mouth at bedtime AT BEDTIME 0 No current facility-administered medications for this visit. Objective: Physical Exam Visit Vitals BP 124/84 Pulse 86 Temp 36.6 C (97.9 F) Resp 16 Wt 77.1 kg (169 lb 14.4 oz) SpO2 98% BMI 27.42 kg/m HEENT: no facial erythema, hearing grossly intact. Extremities no cyanosis, clubbing or edema. Neuroexam: AAO*3, no focal deficits. Skin exam: No psoriasis or vasculitis skin rash. Joint exam: No active synovitis in both upper and lower extremity joints except hands PIP and MCP joints, feet MTP joints tenderness. fibromyalgia tender points. Data reviewed: I personally reviewed old chart, labs in [facility], note and other clinical date from her PCP office. Office Visit on 10/28/2018 Component Date Value Ref Range Status Albumin 10/28/2018 4.6 3.5 - 5.2 g/dL Final Bilirubin, Total 10/28/2018 0.6 <1.2 mg/dL Final Calcium 10/28/2018 9.5 8.6 - 10.0 mg/dL Final Chloride 10/28/2018 101 98 - 107 mmol/L Final Creatinine 10/28/2018 0.90 0.70 - 1.20 mg/dL Final Glucose 10/28/2018 87 70 - 140 mg/dL Final Alkaline Phosphatase 10/28/2018 104 40 - 129 U/L Final Potassium 10/28/2018 3.5 3.4 - 5.1 mmol/L Final Total Protein 10/28/2018 7.3 6.4 - 8.3 g/dL Final Sodium 10/28/2018 137 136 - 145 mmol/L Final AST/SGO 10/28/2018 21 <40 U/L Final Blood Urea Nitrogen 10/28/2018 9 6 - 20 mg/dL Final Osmolality, Armando 10/28/2018 282 275 - 300 mosm/kg Final BUN/Cre Ratio 10/28/2018 10 Final Bicarbonate 10/28/2018 26 22 - 29 mmol/L Final ALT/SGP 10/28/2018 13 <41 U/L Final Anion Gap 10/28/2018 10 8 - 15 mmol/L Final A/G Ratio 10/28/2018 1.7 Final GFR Non 2008 CDK-* 10/28/2018 >90 >60 mL/min/ 1.73m2 Final GFR 2008 CKD-EPI 10/28/2018 >90 >60 mL/min/ 1.73m2 Final White Blood Cell 10/28/2018 5.1 4 - 10 10*3/uL Final Red Blood Cell 10/28/2018 4.91 4.6 - 6.1 10*6/uL Final Hemoglobin 10/28/2018 14.8 13.5 - 18 g/dL Final Hematocrit 10/28/2018 42.4 41 - 53 % Final Mean Cell Volume 10/28/2018 86.3 80 - 96 fL Final Mean Cell Hemoglobin 10/28/2018 30.1 27 - 33 pg Final Mean Cell Hgb Conc 10/28/2018 34.8 32.0 - 36.0 g/dL Final Red Cell Dist Width 10/28/2018 13.9 11.5 - 14.5 % Final Platelet Count 10/28/2018 178 150 - 400 10*3/uL Final Differential Type 10/28/2018 Manual Diff Final Neutrophil 10/28/2018 31 % Final Lymphocyte 10/28/2018 58 % Final Monocyte 10/28/2018 8 % Final Eosinophil 10/28/2018 3 % Final Abs Neutrophil 10/28/2018 1.59* 1.8 - 7.0 10*3/uL Final Abs Lymphocyte 10/28/2018 2.98 1.2 - 4.0 10*3/uL Final Abs Monocyte 10/28/2018 0.38 0 - 0.8 10*3/uL Final Abs Eosinophil 10/28/2018 0.14 0 - 0.5 10*3/uL Final Assessment: 1. Seronegative rheumatoid arthritis. Positive NATASHA, SSA/NETBACKUP ADMIN antibody. Tolerated Orencia 750mg infusion. 2. Fibromyalgia. Active. 3. Lower back pain. Plan: - Fredo was seen today for follow-up. Diagnoses and all orders for this visit: High risk medication use - Sedimentation rate, automated; Future - CBC and Differential; Future - Comprehensive Metabolic Panel; Future - Comprehensive Metabolic Panel - CBC and Differential - Sedimentation rate, automated Seronegative rheumatoid arthritis - Orencia 750mg iv infusion. Tolerated. - Activities as tolerated. - Diet: Paleo diet ( no sugar, no diary, low carb diet) , more greens/vegetables , adequate hydration. - Encouraged to maintain good sleep hygiene. - Continue other medications as prescribed by PCP and other specialist. - RV in 4 weeks; above findings, analysis and plan were all discussed with the patient and questionswere answered as much as possible. documented in this encounter Plan of Treatment Date Type Specialty Care Team Description 03/03/2019 Office Visit Rheumatology Pebbles Guallpa MD [address] [facility] [address]nd [place] [address] [phone] Name Type Priority Associated Diagnoses Order Schedule Sedimentation rate, Lab Routine High risk medication 1 Occurrences starting automated use 02/03/2019 until 08/06/2019 CBC and Differential Lab Routine High risk medication 1 Occurrences starting use 02/03/2019 until 08/06/2019 Comprehensive Metabolic Lab Routine High risk medication 1 Occurrences starting Panel use 02/03/2019 until 08/06/2019 Health Maintenance Due Date Last Done Comments MMR Vaccines (1 of 1 - Standard 1985 series) Varicella Vaccines (1 of 2 - 1985 2-dose childhood series) DTaP,Tdap,and Td Vaccines (1 - 07/10/1991 Tdap) HIV Screening 1997 Influenza Vaccine 11/22/2018 Pneumococcal Vaccine: 65+ Years (1 2049 of 2 - PCV13) HIB Vaccines Aged Out No longer eligible based on patient's age to complete this topic Hepatitis A Vaccines Aged Out No longer eligible based on patient's age to complete this topic Hepatitis B Vaccines Aged Out No longer eligible based on patient's age to complete this topic IPV Vaccines Aged Out No longer eligible based on patient's age to complete this topic Pneumococcal Vaccine: Pediatrics Aged Out No longer eligible based on (0 to 5 Years) and At-Risk patient's age to complete this Patients (6 to 64 Years) topic documented as of this encounter Results Not on filedocumented in this encounter Visit Diagnoses Diagnosis High risk medication use - Primary Encounter for long-term (current) use of other medications Seronegative rheumatoid arthritis Rheumatoid arthritis documented in this encounter Administered Medications Medication Order MAR Action Action Date Dose Rate Site abatacept (ORENCIA) 750 mg New Bag 02/03/2019 1:43 PM 750 mg 280 mL/hr Left Arm in sodium chloride 0.9 % EST 100 mL IVPB 750 mg, Intravenous, Administer over 30 Minutes, Once, 02/03/19 at 1345, For 1 dose, NS 100ml use 0.22micron filter, documented in this encounter
--- OUTSIDE RECORDS SUMMARY | 2019-02-18 21:12 | XMS REPORT | Summary of Care ---
:1985 Author Organization [facility] Address [address] [place] [address] Care Team Providers Name Role Phone Jordon Castro MD Primary Care Provider Reason for Visit Reason Comments Follow-up Medication (Routine) Status Reason Specialty Diagnoses / Referred By Contact Referred To Procedures Contact Authorized Rheumatology Diagnoses Rheumatoid arthritis without rheumatoid factor, unspecified site Rheumatology Procedures MT ABATACEPT INJECTION Medicine Private Practice [facility] [address] [place] [phone] Encounter Details Date Type Department Care Team Description 12/23/2018 Office Visit Pebbles Shi MD [address] [place] [address] [phone] Seronegative rheumatoid arthritis (Primary Dx); Rheumatology Madhavi Harley, RN [address] [place] [phone] High risk medication use [address] [place] [phone] Allergies Active Allergy Reactions Severity Noted Date Comments Doxycycline Hyclate Itching Low 07/18/2014 Penicillins Medium 07/18/2014 documented as of this encounter (statuses as of 12/23/2018) Medications Medication Sig Dispensed Refills Start Date [...] as of this encounter (statuses as of 12/23/2018) Active Problems Problem Noted Date High risk medication use 07/01/2018 Seronegative rheumatoid arthritis 05/21/2016 Major depressive disorder, recurrent severe without psychotic features 2015 ADHD (attention deficit hyperactivity disorder), inattentive type 10/03/2015 Fibromyalgia 10/03/2015 Connective tissue disease, 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 documented as of this encounter Last Filed Vital Signs Vital Sign Reading Time Taken Comments Blood Pressure 142/87 12/23/2018 1:10 PM EDT Pulse 97 12/23/2018 1:10 PM EDT Temperature 36.4 12/23/2018 1:10 PM EDT C (97.6 F) Respiratory Rate 17 12/23/2018 1:10 PM EDT Oxygen Saturation 97% 12/23/2018 1:10 PM EDT Inhaled Oxygen Concentration - - Weight 78.5 kg (173 lb) 12/23/2018 1:10 PM EDT Height 167.6 cm (5' 6") 12/23/2018 1:10 PM EDT Body Mass Index 27.92 12/23/2018 1:10 PM EDT documented in this encounter Progress Notes Pebbles Guallpa MD - 12/23/2018 1:00 PM EDT Subjective: Patient ID: Fredo Alva is a [...] stone. He did follow up with a correctional counselor and had EGD last month, which turned [...] and hepatitis C were both negative by correctional counselor. He had immunization of hepatitis B and [...] anxiety, and fibromyalgia management. He still see home sales consultant for dry eyes and plan to have [...] is looking into a psychotherapist in the [facility]. 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 [...] still has fibromyalgia pain. Follow up with [facility], on Flexeril and [...] NATASHA speckle 50,. Nucleolar 50, SSA 235, STEEL PLATE CAULKER 215. Overall felt stable on Orencia 750mg [...] came in for follow up. He saw [facility] for back pain. Going to have SI [...] sciatic pain. Had one nerve block at [facility] which only lasted 3 days. He was going to have another one next Wednesday. On 07/28/2018, the patient came in for follow up. Still have pain at both wrists, knees, ankles. He had diagnostic injection at [facility] which helped. Still have diffused fibromyalgia tender points and fatigue. Tolerated Orencia 750mg iv. On 08/26/2018, the patient came in for follow up. He had another injection at [facility] about a month ago, this time making [...] ibuprofen as needed. Referred to PT by [facility]. Considering nerve block injection.Hands, knees, ankles increased pain. Tolerated Orencia 750 mg IV. On 10/28/2018, the patient came in for follow up. Back pain was much better after injections at [facility]. Tolerated Orencia 750 mg IV. On 11/25/2018, the patient came in for follow up. He did a lot of PT for back pain. Hands feet more sore than before this week. Tolerated Orencia 750 mg IV. On 12/23/2018, the patient came in for follow up. PT and epidural injections helped back pain. Still has fibromyalgia pain. Tolerated Orencia 750 mg IV. Review of [...] visit. Objective: Physical Exam Visit Vitals BP 142/87 Pulse 97 Temp 36.4 C (97.6 F) (Tympanic) Resp 17 Ht 1.676 m (5' 6") Wt 78.5 kg (173 lb) SpO2 97% BMI 27.92 kg/m HEENT: no facial erythema, hearing grossly intact. Extremities no cyanosis, clubbing or edema. Neuroexam: AAO*3, no focal deficits. Skin exam: No psoriasis or vasculitis skin rash. Joint exam: No active synovitis in both upper and lower extremity joints except hands PIP and MCP joints, feet MTP joints tenderness. fibromyalgia tender points. Data reviewed: I personally reviewed old chart, labs in [facility], note and other clinical date from her [...] Assessment: 1. Seronegative rheumatoid arthritis. Positive NATASHA, SSA/STEEL PLATE CAULKER antibody. Tolerated Orencia 750mg infusion. 2. Fibromyalgia. Active. 3. Lower back pain. Plan: - Fredo was seen today for follow-up. Diagnoses and all orders for this visit: Seronegative rheumatoid arthritis High risk medication use - Orencia 750mg iv infusion. Tolerated. - [...] Treatment Date Type Specialty Care Team Description 01/27/2019 Office Visit Rheumatology Pebbles Guallpa MD [address] [place] [address] [address] [place] [address] [phone] Health Maintenance Due Date Last Done Comments MMR Vaccines (1 of 1 - Standard 1985 series) DTaP,Tdap,and Td Vaccines (1 - 07/10/1991 Tdap) HIV Screening 1997 Varicella Vaccines (1 of 2 - 13+ 1997 2-dose series) Influenza Vaccine 11/22/2018 Pneumococcal Vaccine: 65+ Years [...] filedocumented in this encounter Visit Diagnoses Diagnosis Seronegative rheumatoid arthritis - Primary Rheumatoid arthritis High risk medication use Encounter for long-term (current) use of other medications documented in this encounter Administered Medications Medication Order MAR Action Action Date Dose Rate Site abatacept (ORENCIA) 750 mg New Bag 12/23/2018 1:31 PM 750 mg 300 mL/hr Left Arm in sodium chloride 0.9 % EDT 100 mL IVPB 750 mg, Intravenous, Administer over 30 Minutes, Once, Wed12/23/18 at 1330, For 1 dose, NS 100ml use 0.22micron filter, documented in this encounter
[2019-02-18 21:15] VITALS: BP 135/103
--- NOTE | 2019-02-18 21:41 | UC ---
Throat Pain/Nasal Branden HPI - HPI Summary HPI Summary: 33 year old male with extensive PMH + for connective tissues disorders presents with sinus pressure, congestion, pain x 3 days. + cough with nasal drip, sore throat. + sore throat. was on ABX for similar symptoms ~ 6 weeks ago by PCP - History of Current Complaint Chief Complaint: UCRespiratory Stated Complaint: SINUS COMPLAINT Time Seen by Provider: 02/18/19 21:35 Hx Obtained From: Patient Onset/Duration: Sudden Onset, Lasting Days - 3 Severity: Moderate Pain Intensity: 5 Pain Scale Used: 0-10 Numeric Cough: Nonproductive Associated Signs & Symptoms: Positive: Sinus Discomfort, Nasal Discharge, Fever. Negative: Dysphagia, Vomiting - Allergies/Home Medications Allergies/Adverse Reactions: Allergies Allergy/AdvReac Type Severity Reaction Status Date / Time doxycycline Allergy Itching Verified 02/18/19 21:15 Penicillins Allergy Unknown Verified 02/18/19 21:15 Reaction Details TREE POLLEN Allergy Unknown Unknown Uncoded 02/18/19 21:15 Reaction Details DUST MITE EXTRACT Allergy See Comment Uncoded 02/18/19 21:15 seasonal allergy Allergy Congestion Uncoded 02/18/19 21:15 Home Medications: Home Medications Isotretinoin [Claravis] 80 mg PO DAILY 02/18/19 [History Confirmed 02/18/19] Pseudoephedrine HCL ER TAB* [Sudafed 12 Hour*] 120 mg PO BID 02/18/19 [History Confirmed 02/18/19] PMH/Surg Hx/FS Hx/Imm Hx Previously Healthy: Yes - Surgical History Surgical History: Yes Surgery Procedure, Year, and Place: wisdom teeth. SINUS - TISSUE REMOVED & DEVIATED EPTUM - 02/04, upper endoscopy 2014. tear duct plugs placed bilat - Family History Known Family History: Positive: None, Hypertension Negative: Cardiac Disease, Diabetes - Social History Alcohol Use: None Substance Use Type: None Smoking Status (MU): Never Smoked Tobacco Have You Smoked in the Last Year: No - Immunization History Hx Tetanus, Diphtheria Vaccination: Yes Vaccination Up to Date: Yes Review of Systems All Other Systems Reviewed And Are Negative: Yes Constitutional: Positive: Fever, Chills, Fatigue ENT: Positive: Sore Throat, Ear Ache, Sinus Congestion, Sinus Pain/Tenderness Respiratory: Positive: Cough Neurological: Positive: Negative Is Patient Immunocompromised?: No Physical Exam Triage Information Reviewed: Yes Appearance: No Pain Distress, Well-Nourished, Ill-Appearing - mild Vital Signs: Initial Vital Signs Temp 99.3 F 02/18/19 21:11 Pulse 90 02/18/19 21:11 Resp 16 02/18/19 21:11 BP 135/103 02/18/19 21:11 Pulse Ox 100 02/18/19 21:11 Vital Signs Reviewed: Yes Eyes: Positive: Conjunctiva Clear ENT: Positive: Pharynx normal, TMs normal, Sinus tenderness - b/l frontal, max, Uvula midline. Negative: TM bulging, TM dull, TM red, Tonsillar swelling, Tonsillar exudate Neck: Positive: Supple, No Lymphadenopathy, Tenderness @ - pre-auricular b/l. Negative: Nuchal Rigidity, Enlarged Nodes @ Respiratory: Positive: Chest non-tender, Lungs clear, Normal breath sounds, No respiratory distress, No accessory muscle use. Negative: Respiratory distress, Crackles, Rhonchi, Stridor, Wheezing, Expiration Cardiovascular: Positive: RRR, No Murmur Neurological Exam: Normal Psychological Exam: Normal Throat Pain/Nasal Course/Dx - Course Course Of Treatment: Sinusitis: - Antibiotics as directed- 2 tablets given to you at urgent care, 1 tablet daily after that for 4 days - increase fluid intake - Over the counter medications as needed for symptoms such as fever, pain - Go to ER with difficulty breathing, increased pain, headache. - Differential Dx/Diagnosis Differential Diagnosis/HQI/PQRI: Peritonsillar Abscess, Sinusitis, URI Provider Diagnosis: Sinusitis Discharge ED - Sign-Out/Discharge Documenting (check all that apply): Patient Departure All imaging exams completed and their final reports reviewed: No Studies - Discharge Plan Condition: Good Disposition: HOME Prescriptions: Azithromycin 250 mg PO DAILY #4 tablet Patient Education Materials: Sinusitis (ED) Referrals: Jordon Castro MD [Primary Care Provider] - Additional Instructions: - Antibiotics as directed- 2 tablets given to you at urgent care, 1 tablet daily after that for 4 days - increase fluid intake - Over the counter medications as needed for symptoms such as fever, pain - Go to ER with difficulty breathing, increased pain, headache. - Billing Disposition and Condition Condition: GOOD Disposition: Home - Attestation Statements Provider Attestation: This patient was not seen by me I was available for consult Chart reviewed CARLOS
[2019-02-18] MEDS ORDERED: Azithromycin TAB* 250 MG PO ONE (21:43)
== END 2019-02-18 21:51 | disposition home or self-care (01) ==
LOC: UCCORT 21:03
DX: J32.9 Chronic sinusitis, unspecified (principal); J02.9 Acute pharyngitis, unspecified; H92.09 Otalgia, unspecified ear; Z88.1 Allergy status to other antibiotic agents; Z88.0 Allergy status to penicillin; Z91.09 Other allergy status, other than to drugs and biological substances
CPT/HCPCS: 99212; A9270-GY; G0463